=== PATIENT | female | born 1975 | race Two or more races ===

== ENCOUNTER 2022-02-10 13:07 | Emergency (ER) | payer MEDICAID ==
[2022-02-10 14:04] VITALS: BP 128/69
[2022-02-10] MEDS ORDERED: CEPH-510 PO (14:11)
== END 2022-02-10 14:29 | disposition home or self-care (01) ==
LOC: ER 13:07
DX: S80.821A Blister (nonthermal), right lower leg, initial encounter (principal); X58.XXXA Exposure to other specified factors, initial encounter; Y93.89 Activity, other specified; Y92.89 Other specified places as the place of occurrence of the external cause; Y99.8 Other external cause status